=== PATIENT | female | born 1940 | race Caucasian/White ===

== ENCOUNTER 2020-06-26 19:34 | Inpatient (IN) | payer OTHER, MEDICAID, SELFPAY ==
[~2020-06-26] VITALS: Ht 157.5 cm; Wt 49.4 kg
[2020-06-26 19:34] VITALS: BP_SYST 118
[2020-06-26 22:17] LABS: BASOPHILS % (AUTO) 0.2 % (0.0-2.0); EOSINOPHILS % (AUTO) 0.2 % (0.0-4.0); HEMATOCRIT 34.3 % (36-48); LYMPHOCYTES % (AUTO) 15.7 % (20.5-51.5); MEAN CORPUSCULAR HEMOGLOBIN 27 pg (27-31); MEAN CORPUSCULAR HGB CONC 32 % (32-36); MEAN CORPUSCULAR VOLUME 85 fL (79.0-98.0); MONOCYTES # (AUTO) 0.3 K/uL (0.0-1.0); MONOCYTES % (AUTO) 4.1 % (1.7-9.3); NEUTROPHILS % (AUTO) 79.8 % (40.0-70.0); PLATELET COUNT (AUTO) 198 K/uL (130-430); RED BLOOD CELL COUNT(AUTO) 4.04 MIL/uL (4.2-6.2); RED CELL DISTRIBUTION WIDTH 15.5 % (9.0-15.0); WHITE BLOOD COUNT (AUTO) 6.2 K/uL (4.8-10.8)
[2020-06-26 22:28] LABS: ANION GAP 14 (5-15); CALCIUM 8.5 mg/dL (8.4-11.0); CHLORIDE 102 mmol/L (98-107); CREATININE 1.11 mg/dL (0.55-1.30); GLUCOSE 154 mg/dL (70-99); POTASSIUM 3.8 mmol/L (3.5-5.1); SODIUM SERUM 139 mmol/L (136-145); UREA NITROGEN, BLOOD 31 mg/dL (8-21)
[2020-06-26 22:33] LABS: ALANINE AMINOTRANSFERASE 31 U/L (12-78); ALBUMIN 2.9 g/dL (3.4-4.8); ASPARTATE AMINOTRANSFERASE 54 U/L (10-37); TOTAL BILIRUBIN 0.5 mg/dL (0.0-1.0)
[2020-06-27] MEDS: D5/0.45 NS 1,000 ML IV SCH ×2 (03:10→20:45)
[2020-06-27 03:24] LABS: BILIRUBIN,URINE NEGATIVE (NEGATIVE); BLOOD, URINE 3+ (NEGATIVE); CLARITY/URINE CLOUDY (CLEAR); COLOR,URINE YELLOW (YELLOW); GLUCOSE,URINE NEGATIVE (NEGATIVE); KETONES,URINE TRACE (NEGATIVE); LEUKOCYTE ESTERASE ,URINE 3+ (NEGATIVE); NITRITE, URINE NEGATIVE (NEGATIVE); PROTEIN URINE 1+ (NEGATIVE); UROBILINOGEN,URINE 0.2 (0.2-1.0)
[2020-06-27 03:28] LABS: BACTERIA,URINE MANY /HPF (None Seen); RBC,URINE >100 /HPF (0-3); WBC,URINE >100 /HPF (0-3)
[2020-06-27] MEDS: PIPERACILLIN/TAZO 2.25G/DEX-IS 50 ML IV SCH ×4 (06:00→23:41)
[2020-06-27 09:30] VITALS: BP_SYST 114
[2020-06-27 10:00] VITALS: BP_SYST 131
[2020-06-27 12:00] VITALS: BP_SYST 131
[2020-06-27] MEDS ORDERED: MOM PO (15:38)
[2020-06-27] MEDS ORDERED: LIDOINT TP (15:38)
[2020-06-27] MEDS ORDERED: FER300L PO (15:38)
[2020-06-27] MEDS ORDERED: OMEP40CA13 PO (15:38)
[2020-06-27] MEDS ORDERED: POTA20TA83 PO (15:38)
[2020-06-27] MEDS ORDERED: OXYB5TAB18 PO (15:38)
[2020-06-27] MEDS ORDERED: CYAN100010 PO (15:38)
[2020-06-27] MEDS ORDERED: CARV6.2554 PO (15:38)
[2020-06-27] MEDS ORDERED: INSU100V9 SQ (15:38)
[2020-06-27] MEDS ORDERED: ACET-73 PO (15:38)
[2020-06-27] MEDS ORDERED: GLUXR500 PO (15:38)
[2020-06-27] MEDS ORDERED: FURO20TA4 PO (15:38)
[2020-06-27] MEDS ORDERED: ONDA4TAB5 PO (15:38)
[2020-06-27] MEDS ORDERED: VITD400 PO (15:38)
[2020-06-27] MEDS ORDERED: MULT-1089 PO (15:38)
[2020-06-27] MEDS ORDERED: SSNOVOLOG SUBCUT (15:38)
[2020-06-27] MEDS ORDERED: ROSU10TA2 PO (15:38)
[2020-06-27 16:00] VITALS: BP_SYST 139
[2020-06-27] MEDS ORDERED: MILK OF MAGNESIA 30 ML UDC PO SCH (17:00)
[2020-06-27] MEDS ORDERED: ONDANSETRON 4 MG ODT TAB PO SCH (17:00)
[2020-06-27] MEDS ORDERED: ACETAMINOPHEN 500 MG TABLET PO PRN (17:00)
[2020-06-27] MEDS: INSULIN LISPRO SLIDING SCALE 100 UNITS/ML VIAL (humaLOG) SUBCUT PRN (17:30)
[2020-06-27 20:00] VITALS: BP_SYST 114
[2020-06-27] MEDS: ATORVASTATIN 10 MG TABLET PO SCH (21:00)
[2020-06-27] MEDS: OXYBUTYNIN CHLORIDE 5 MG TABLET PO SCH (21:00)
[2020-06-27] MEDS: CARVEDILOL 6.25 MG TABLET (COREG) PO SCH (21:00)
[2020-06-28] VITALS: BP_SYST 128
[2020-06-28] MEDS: INSULIN LISPRO SLIDING SCALE 100 UNITS/ML VIAL (humaLOG) SUBCUT PRN ×3 (00:16→12:16)
[2020-06-28] MEDS: PIPERACILLIN/TAZO 2.25G/DEX-IS 50 ML IV SCH ×3 (05:34→17:42)
[2020-06-28 08:00] VITALS: BP_SYST 114
[2020-06-28 08:02] LABS: BASOPHILS % (AUTO) 0.2 % (0.0-2.0); EOSINOPHILS # (AUTO) 0.1 K/uL (0.0-0.4); EOSINOPHILS % (AUTO) 1.1 % (0.0-4.0); HEMATOCRIT 32.2 % (36-48); HEMOGLOBIN 10.6 g/dL (12.0-16.0); LYMPHOCYTES # (AUTO) 0.9 K/uL (1.0-5.5); LYMPHOCYTES % (AUTO) 15.3 % (20.5-51.5); MEAN CORPUSCULAR HEMOGLOBIN 28 pg (27-31); MEAN CORPUSCULAR HGB CONC 33 % (32-36); MEAN CORPUSCULAR VOLUME 84 fL (79.0-98.0); MONOCYTES # (AUTO) 0.3 K/uL (0.0-1.0); MONOCYTES % (AUTO) 4.3 % (1.7-9.3); NEUTROPHILS # (AUTO) 4.8 K/uL (1.8-7.7); NEUTROPHILS % (AUTO) 79.1 % (40.0-70.0); PLATELET COUNT (AUTO) 197 K/uL (130-430); RED BLOOD CELL COUNT(AUTO) 3.84 MIL/uL (4.2-6.2); WHITE BLOOD COUNT (AUTO) 6.1 K/uL (4.8-10.8)
[2020-06-28 08:04] LABS: PROTHROMBIN TIME 9.9 SECS (9.5-12.5)
[2020-06-28 08:08] LABS: TOTAL IRON BIND. CAPACITY 194 ug/dL (250-450)
[2020-06-28 08:14] LABS: ALANINE AMINOTRANSFERASE 23 U/L (12-78); ALBUMIN 2.6 g/dL (3.4-4.8); ANION GAP 10 (5-15); ASPARTATE AMINOTRANSFERASE 26 U/L (10-37); CALCIUM 8.7 mg/dL (8.4-11.0); CHLORIDE 100 mmol/L (98-107); CREATININE 1.04 mg/dL (0.55-1.30); GLUCOSE 183 mg/dL (70-99); LIPASE 47 U/L (73-393); POTASSIUM 3.9 mmol/L (3.5-5.1); SODIUM SERUM 136 mmol/L (136-145); TOTAL BILIRUBIN 0.5 mg/dL (0.0-1.0); UREA NITROGEN, BLOOD 22 mg/dL (8-21)
[2020-06-28] MEDS: LIDOCAINE TOPICAL OINT 5%, 35 GM TP SCH (09:00)
[2020-06-28] MEDS: POTASSIUM CHLORIDE 20 MEQ TAB.PRT.SR PO SCH (09:37)
[2020-06-28] MEDS: PANTOPRAZOLE SODIUM 40 MG TAB PO SCH (09:37)
[2020-06-28] MEDS: CARVEDILOL 6.25 MG TABLET (COREG) PO SCH ×2 (09:37→21:00)
[2020-06-28] MEDS: MULTIVITAMINS TAB 1 TABLET PO SCH (09:38)
[2020-06-28] MEDS: CYANOCOBALAMIN 1000 mCg TABLET PO SCH (09:38)
[2020-06-28] MEDS: OXYBUTYNIN CHLORIDE 5 MG TABLET PO SCH ×2 (09:38→21:00)
[2020-06-28] MEDS: CHOLECALCIFEROL (VITAMIN D-3) 400 UNIT TABLET PO SCH (09:38)
[2020-06-28] MEDS: FUROSEMIDE 20 MG TABLET PO SCH (09:39)
[2020-06-28] MEDS: FERROUS SULFATE 300 MG/5 ML UDC PO SCH (09:39)
[2020-06-28 11:35] VITALS: BP_SYST 115
[2020-06-28 16:00] VITALS: BP_SYST 114
[2020-06-28] MEDS: D5/0.45 NS 1,000 ML IV SCH (16:45)
[2020-06-28 20:00] VITALS: BP_SYST 110
[2020-06-28] MEDS: ATORVASTATIN 10 MG TABLET PO SCH (21:00)
[2020-06-29] VITALS: BP_SYST 103
[2020-06-29] MEDS: INSULIN LISPRO SLIDING SCALE 100 UNITS/ML VIAL (humaLOG) SUBCUT PRN ×3 (00:28→17:03)
[2020-06-29] MEDS: PIPERACILLIN/TAZO 2.25G/DEX-IS 50 ML IV SCH ×4 (00:28→17:01)
[2020-06-29 08:00] VITALS: BP_SYST 98
[2020-06-29 08:06] LABS: HEPATITIS A AB, IgM Negative (Negative); HEPATITIS B CORE AB, IgM Negative (Negative); HEPATITIS B SURFACE AG Negative (Negative)
[2020-06-29] MEDS: FERROUS SULFATE 300 MG/5 ML UDC PO SCH ×2 (09:00→10:04)
[2020-06-29] MEDS: CARVEDILOL 6.25 MG TABLET (COREG) PO SCH ×2 (09:00→21:00)
[2020-06-29] MEDS: LIDOCAINE TOPICAL OINT 5%, 35 GM TP SCH (09:00)
[2020-06-29 09:17] LABS: ANTI NUCLEAR AB WITH REFLEX Positive (Negative)
[2020-06-29] MEDS ORDERED: MEGESTROL ACETATE 400 MG/10 ML UDC PO ONE (09:30)
[2020-06-29] MEDS: POTASSIUM CHLORIDE 20 MEQ TAB.PRT.SR PO SCH (10:01)
[2020-06-29] MEDS: OXYBUTYNIN CHLORIDE 5 MG TABLET PO SCH ×2 (10:02→21:45)
[2020-06-29] MEDS: CHOLECALCIFEROL (VITAMIN D-3) 400 UNIT TABLET PO SCH (10:02)
[2020-06-29] MEDS: MULTIVITAMINS TAB 1 TABLET PO SCH (10:02)
[2020-06-29] MEDS: FUROSEMIDE 20 MG TABLET PO SCH (10:02)
[2020-06-29] MEDS: CYANOCOBALAMIN 1000 mCg TABLET PO SCH (10:03)
[2020-06-29] MEDS: PANTOPRAZOLE SODIUM 40 MG TAB PO SCH (10:03)
[2020-06-29] MEDS: D5/0.45 NS 1,000 ML IV SCH (12:45)
[2020-06-29 20:00] VITALS: BP_SYST 100
[2020-06-29] MEDS: ATORVASTATIN 10 MG TABLET PO SCH (21:45)
[2020-06-30] VITALS: BP_SYST 97
[2020-06-30] MEDS: INSULIN LISPRO SLIDING SCALE 100 UNITS/ML VIAL (humaLOG) SUBCUT PRN (01:00)
[2020-06-30] MEDS: PIPERACILLIN/TAZO 2.25G/DEX-IS 50 ML IV SCH ×3 (06:00→12:03)
[2020-06-30 07:26] LABS: BASOPHILS % (AUTO) 0.4 % (0.0-2.0); EOSINOPHILS # (AUTO) 0.1 K/uL (0.0-0.4); EOSINOPHILS % (AUTO) 1.3 % (0.0-4.0); HEMOGLOBIN 9.9 g/dL (12.0-16.0); LYMPHOCYTES # (AUTO) 1.9 K/uL (1.0-5.5); MEAN CORPUSCULAR HEMOGLOBIN 28 pg (27-31); MEAN CORPUSCULAR HGB CONC 34 % (32-36); MEAN CORPUSCULAR VOLUME 83 fL (79.0-98.0); MONOCYTES # (AUTO) 0.4 K/uL (0.0-1.0); MONOCYTES % (AUTO) 4.6 % (1.7-9.3); NEUTROPHILS # (AUTO) 7.1 K/uL (1.8-7.7); NEUTROPHILS % (AUTO) 73.7 % (40.0-70.0); PLATELET COUNT (AUTO) 242 K/uL (130-430); RED BLOOD CELL COUNT(AUTO) 3.48 MIL/uL (4.2-6.2); RED CELL DISTRIBUTION WIDTH 15.1 % (9.0-15.0); WHITE BLOOD COUNT (AUTO) 9.7 K/uL (4.8-10.8)
[2020-06-30 08:17] LABS: ANION GAP 12 (5-15); CALCIUM 8.8 mg/dL (8.4-11.0); CHLORIDE 101 mmol/L (98-107); CREATININE 1.27 mg/dL (0.55-1.30); GLUCOSE 76 mg/dL (70-99); POTASSIUM 3.3 mmol/L (3.5-5.1); SODIUM SERUM 138 mmol/L (136-145); UREA NITROGEN, BLOOD 20 mg/dL (8-21)
[2020-06-30] MEDS ORDERED: DEXTROSE 50% JECT 50 ML DISP.SYRIN IVP PRN (10:15)
[2020-06-30 10:25] VITALS: BP_SYST 110
[2020-06-30] MEDS: OXYBUTYNIN CHLORIDE 5 MG TABLET PO SCH ×2 (10:25→21:00)
[2020-06-30] MEDS: CARVEDILOL 6.25 MG TABLET (COREG) PO SCH ×2 (10:25→21:00)
[2020-06-30] MEDS: FUROSEMIDE 20 MG TABLET PO SCH (10:25)
[2020-06-30] MEDS: CYANOCOBALAMIN 1000 mCg TABLET PO SCH (10:25)
[2020-06-30] MEDS: LIDOCAINE TOPICAL OINT 5%, 35 GM TP SCH (10:25)
[2020-06-30] MEDS: MEGESTROL ACETATE 400 MG/10 ML UDC PO SCH (10:25)
[2020-06-30] MEDS: FERROUS SULFATE 300 MG/5 ML UDC PO SCH (10:25)
[2020-06-30] MEDS: POTASSIUM CHLORIDE 20 MEQ TAB.PRT.SR PO SCH (10:25)
[2020-06-30] MEDS: PANTOPRAZOLE SODIUM 40 MG TAB PO SCH (10:25)
[2020-06-30] MEDS: MULTIVITAMINS TAB 1 TABLET PO SCH (10:25)
[2020-06-30] MEDS: CHOLECALCIFEROL (VITAMIN D-3) 400 UNIT TABLET PO SCH (10:25)
[2020-06-30] MEDS: D5/0.45 NS 1,000 ML IV SCH (10:25)
[2020-06-30 11:31] VITALS: BP_SYST 104
[2020-06-30 11:34] LABS: PHOSPHORUS 2.1 mg/dL (2.7-4.5)
[2020-06-30 12:10] LABS: ANTI-SMOOTH MUSCLE AB 4 Units (0-19)
[2020-06-30] MEDS ORDERED: POTASSIUM CHLORIDE 20 MEQ in NS 250 ML IV ONE (14:30)
[2020-06-30 15:20] VITALS: BP_SYST 103
[2020-06-30 20:00] VITALS: BP_SYST 118
[2020-06-30] MEDS ORDERED: *TPN PER PHARMACY XX PRN (21:00)
[2020-06-30] MEDS ORDERED: POTASSIUM CHLORIDE IV SCH ×10 (21:00)
[2020-06-30] MEDS: ATORVASTATIN 10 MG TABLET PO SCH (21:00)
[2020-06-30] MEDS ORDERED: [UNRECOGNIZED DRUG - OTHER] IV SCH ×10 (21:00)
[2020-06-30] MEDS ORDERED: TPN PERIPHERAL IV SCH ×10 (21:00)
[2020-06-30] MEDS ORDERED: SODIUM CHLORIDE IV SCH ×10 (21:00)
[2020-07-01 00:15] VITALS: BP_SYST 109
[2020-07-01] MEDS: PIPERACILLIN/TAZO 2.25G/DEX-IS 50 ML IV SCH ×2 (00:18→05:21)
[2020-07-01] MEDS: D5/0.45 NS 1,000 ML IV SCH (04:45)
[2020-07-01] MEDS: INSULIN REGULAR, HUMAN 100 UNITS/ML, 10 ML VIAL (humuLIN R) SUBCUT PRN ×2 (05:24→17:42)
[2020-07-01] MEDS ORDERED: LEVOFLOXACIN 250 MG/D5W 50 ML IV ONE (06:37)
[2020-07-01] MEDS: LEVOFLOXACIN 250 MG/D5W 50 ML IV SCH (06:40)
[2020-07-01 08:14] LABS: ALANINE AMINOTRANSFERASE 14 U/L (12-78); ALBUMIN 2.1 g/dL (3.4-4.8); ANION GAP 11 (5-15); ASPARTATE AMINOTRANSFERASE 19 U/L (10-37); CALCIUM 8.1 mg/dL (8.4-11.0); CHLORIDE 104 mmol/L (98-107); CREATININE 1.14 mg/dL (0.55-1.30); GLUCOSE 191 mg/dL (70-99); PHOSPHORUS 2.9 mg/dL (2.7-4.5); POTASSIUM 3.5 mmol/L (3.5-5.1); SODIUM SERUM 137 mmol/L (136-145); TOTAL BILIRUBIN 0.3 mg/dL (0.0-1.0); UREA NITROGEN, BLOOD 17 mg/dL (8-21)
[2020-07-01] MEDS: POTASSIUM CHLORIDE 20 MEQ TAB.PRT.SR PO SCH (09:00)
[2020-07-01] MEDS: MULTIVITAMINS TAB 1 TABLET PO SCH (09:00)
[2020-07-01] MEDS: CHOLECALCIFEROL (VITAMIN D-3) 400 UNIT TABLET PO SCH (09:00)
[2020-07-01] MEDS: FERROUS SULFATE 300 MG/5 ML UDC PO SCH (09:00)
[2020-07-01] MEDS: CARVEDILOL 6.25 MG TABLET (COREG) PO SCH ×2 (09:00→23:06)
[2020-07-01] MEDS: PANTOPRAZOLE SODIUM 40 MG TAB PO SCH (09:00)
[2020-07-01] MEDS: LIDOCAINE TOPICAL OINT 5%, 35 GM TP SCH (09:00)
[2020-07-01] MEDS: OXYBUTYNIN CHLORIDE 5 MG TABLET PO SCH ×2 (09:00→23:06)
[2020-07-01] MEDS: FUROSEMIDE 20 MG TABLET PO SCH (09:00)
[2020-07-01] MEDS: CYANOCOBALAMIN 1000 mCg TABLET PO SCH (09:00)
[2020-07-01] MEDS: MEGESTROL ACETATE 400 MG/10 ML UDC PO SCH (09:00)
[2020-07-01 12:10] VITALS: BP_SYST 121
[2020-07-01 16:13] VITALS: BP_SYST 115
[2020-07-01 20:00] VITALS: BP_SYST 106
[2020-07-01] MEDS: ATORVASTATIN 10 MG TABLET PO SCH (23:08)
[2020-07-01] MEDS: [UNRECOGNIZED DRUG - OTHER] IV SCH ×11 (23:10)
[2020-07-01] MEDS: POTASSIUM ACETATE IV SCH ×11 (23:10)
[2020-07-01] MEDS: TPN PERIPHERAL IV SCH ×11 (23:10)
[2020-07-01] MEDS: SODIUM CHLORIDE IV SCH ×11 (23:10)
[2020-07-01] MEDS: FAT EMULSIONS 250 ML IV SCH (23:11)
[2020-07-02] VITALS: BP_SYST 103; BP_SYST 109
[2020-07-02] MEDS: INSULIN REGULAR, HUMAN 100 UNITS/ML, 10 ML VIAL (humuLIN R) SUBCUT PRN ×3 (00:10→12:27)
[2020-07-02] MEDS: D5/0.45 NS 1,000 ML IV SCH ×3 (02:59→21:00)
[2020-07-02] MEDS: LEVOFLOXACIN 250 MG/D5W 50 ML IV SCH (06:33)
[2020-07-02 07:57] LABS: ALANINE AMINOTRANSFERASE 11 U/L (12-78); ALBUMIN 2.1 g/dL (3.4-4.8); ANION GAP 5 (5-15); ASPARTATE AMINOTRANSFERASE 15 U/L (10-37); CALCIUM 7.9 mg/dL (8.4-11.0); CHLORIDE 103 mmol/L (98-107); CREATININE 0.91 mg/dL (0.55-1.30); GLUCOSE 231 mg/dL (70-99); PHOSPHORUS 3.1 mg/dL (2.7-4.5); POTASSIUM 3.8 mmol/L (3.5-5.1); SODIUM SERUM 131 mmol/L (136-145); TOTAL BILIRUBIN 0.3 mg/dL (0.0-1.0); UREA NITROGEN, BLOOD 17 mg/dL (8-21)
[2020-07-02 08:00] VITALS: BP_SYST 115
[2020-07-02] MEDS: OXYBUTYNIN CHLORIDE 5 MG TABLET PO SCH ×2 (09:00→21:00)
[2020-07-02] MEDS: CYANOCOBALAMIN 1000 mCg TABLET PO SCH (09:00)
[2020-07-02] MEDS: CHOLECALCIFEROL (VITAMIN D-3) 400 UNIT TABLET PO SCH (09:00)
[2020-07-02] MEDS: FERROUS SULFATE 300 MG/5 ML UDC PO SCH (09:00)
[2020-07-02] MEDS: POTASSIUM CHLORIDE 20 MEQ TAB.PRT.SR PO SCH (09:00)
[2020-07-02] MEDS: MEGESTROL ACETATE 400 MG/10 ML UDC PO SCH (09:00)
[2020-07-02] MEDS: PANTOPRAZOLE SODIUM 40 MG TAB PO SCH (09:00)
[2020-07-02] MEDS: CARVEDILOL 6.25 MG TABLET (COREG) PO SCH ×2 (09:00→21:00)
[2020-07-02] MEDS: LIDOCAINE TOPICAL OINT 5%, 35 GM TP SCH (09:00)
[2020-07-02] MEDS: MULTIVITAMINS TAB 1 TABLET PO SCH (09:00)
[2020-07-02] MEDS: FUROSEMIDE 20 MG TABLET PO SCH (09:00)
[2020-07-02 16:00] VITALS: BP_SYST 113
[2020-07-02 19:55] VITALS: BP_SYST 103
[2020-07-02] MEDS: [UNRECOGNIZED DRUG - OTHER] IV SCH ×11 (20:38)
[2020-07-02] MEDS: SODIUM CHLORIDE IV SCH ×11 (20:38)
[2020-07-02] MEDS: TPN PERIPHERAL IV SCH ×11 (20:38)
[2020-07-02] MEDS: POTASSIUM ACETATE IV SCH ×11 (20:38)
[2020-07-02] MEDS ORDERED: SODIUM CHLORIDE IV SCH ×12 (21:00)
[2020-07-02] MEDS ORDERED: POTASSIUM ACETATE IV SCH ×12 (21:00)
[2020-07-02] MEDS ORDERED: [UNRECOGNIZED DRUG - OTHER] IV SCH ×12 (21:00)
[2020-07-02] MEDS ORDERED: TPN PERIPHERAL IV SCH ×12 (21:00)
[2020-07-02] MEDS: FAT EMULSIONS 250 ML IV SCH (21:00)
[2020-07-02] MEDS: ATORVASTATIN 10 MG TABLET PO SCH (21:00)
[2020-07-03] VITALS: BP_SYST 103
[2020-07-03] MEDS: INSULIN REGULAR, HUMAN 100 UNITS/ML, 10 ML VIAL (humuLIN R) SUBCUT PRN ×3 (00:50→12:54)
[2020-07-03] MEDS: LEVOFLOXACIN 250 MG/D5W 50 ML IV SCH (05:58)
[2020-07-03 07:55] VITALS: BP_SYST 132
[2020-07-03 08:54] LABS: ALANINE AMINOTRANSFERASE 13 U/L (12-78); ALBUMIN 2.1 g/dL (3.4-4.8); ANION GAP 10 (5-15); ASPARTATE AMINOTRANSFERASE 17 U/L (10-37); CALCIUM 8.5 mg/dL (8.4-11.0); CHLORIDE 105 mmol/L (98-107); GLUCOSE 195 mg/dL (70-99); PHOSPHORUS 3.5 mg/dL (2.7-4.5); SODIUM SERUM 138 mmol/L (136-145); TOTAL BILIRUBIN 0.3 mg/dL (0.0-1.0); UREA NITROGEN, BLOOD 20 mg/dL (8-21)
[2020-07-03] MEDS: LIDOCAINE TOPICAL OINT 5%, 35 GM TP SCH (09:00)
[2020-07-03 09:25] LABS: CREATININE 0.93 mg/dL (0.55-1.30)
[2020-07-03] MEDS: OXYBUTYNIN CHLORIDE 5 MG TABLET PO SCH ×2 (10:26→22:13)
[2020-07-03] MEDS: FUROSEMIDE 20 MG TABLET PO SCH (10:27)
[2020-07-03] MEDS: PANTOPRAZOLE SODIUM 40 MG TAB PO SCH (10:27)
[2020-07-03] MEDS: POTASSIUM CHLORIDE 20 MEQ TAB.PRT.SR PO SCH (10:27)
[2020-07-03] MEDS: MEGESTROL ACETATE 400 MG/10 ML UDC PO SCH (10:27)
[2020-07-03] MEDS: MULTIVITAMINS TAB 1 TABLET PO SCH (10:27)
[2020-07-03] MEDS: CYANOCOBALAMIN 1000 mCg TABLET PO SCH (10:28)
[2020-07-03] MEDS: FERROUS SULFATE 300 MG/5 ML UDC PO SCH (10:28)
[2020-07-03] MEDS: CHOLECALCIFEROL (VITAMIN D-3) 400 UNIT TABLET PO SCH (10:28)
[2020-07-03] MEDS: CARVEDILOL 6.25 MG TABLET (COREG) PO SCH ×2 (10:28→22:13)
[2020-07-03 12:00] VITALS: BP_SYST 122
[2020-07-03 16:00] VITALS: BP_SYST 121
[2020-07-03] MEDS ORDERED: TPN PERIPHERAL IV SCH ×11 (21:00)
[2020-07-03] MEDS ORDERED: [UNRECOGNIZED DRUG - OTHER] IV SCH ×11 (21:00)
[2020-07-03] MEDS ORDERED: SODIUM CHLORIDE IV SCH ×11 (21:00)
[2020-07-03] MEDS ORDERED: POTASSIUM ACETATE IV SCH ×11 (21:00)
[2020-07-03 21:30] VITALS: BP_SYST 129
[2020-07-03] MEDS: D5/0.45 NS 1,000 ML IV SCH (22:11)
[2020-07-03] MEDS: ATORVASTATIN 10 MG TABLET PO SCH (22:14)
[2020-07-03] MEDS: FAT EMULSIONS 250 ML IV SCH (22:21)
[2020-07-04] VITALS: BP_SYST 108
[2020-07-04] MEDS: INSULIN REGULAR, HUMAN 100 UNITS/ML, 10 ML VIAL (humuLIN R) SUBCUT PRN ×3 (00:24→18:16)
[2020-07-04] MEDS: LEVOFLOXACIN 250 MG/D5W 50 ML IV SCH (05:06)
[2020-07-04 07:58] VITALS: BP_SYST 94
[2020-07-04 08:25] LABS: ALANINE AMINOTRANSFERASE 26 U/L (12-78); ALBUMIN 2.2 g/dL (3.4-4.8); ANION GAP 12 (5-15); CALCIUM 8.4 mg/dL (8.4-11.0); CHLORIDE 103 mmol/L (98-107); GLUCOSE 150 mg/dL (70-99); PHOSPHORUS 3.4 mg/dL (2.7-4.5); POTASSIUM 4.1 mmol/L (3.5-5.1); SODIUM SERUM 137 mmol/L (136-145); TOTAL BILIRUBIN 0.8 mg/dL (0.0-1.0); UREA NITROGEN, BLOOD 28 mg/dL (8-21)
[2020-07-04 08:37] LABS: ASPARTATE AMINOTRANSFERASE 34 U/L (10-37)
[2020-07-04] MEDS: POTASSIUM CHLORIDE 20 MEQ TAB.PRT.SR PO SCH (09:00)
[2020-07-04] MEDS: FUROSEMIDE 20 MG TABLET PO SCH (09:00)
[2020-07-04] MEDS: CHOLECALCIFEROL (VITAMIN D-3) 400 UNIT TABLET PO SCH (09:00)
[2020-07-04] MEDS: CYANOCOBALAMIN 1000 mCg TABLET PO SCH (09:00)
[2020-07-04] MEDS: FERROUS SULFATE 300 MG/5 ML UDC PO SCH (09:00)
[2020-07-04] MEDS: CARVEDILOL 6.25 MG TABLET (COREG) PO SCH ×2 (09:00→21:00)
[2020-07-04] MEDS: MULTIVITAMINS TAB 1 TABLET PO SCH (09:00)
[2020-07-04] MEDS: LIDOCAINE TOPICAL OINT 5%, 35 GM TP SCH (09:00)
[2020-07-04] MEDS: OXYBUTYNIN CHLORIDE 5 MG TABLET PO SCH ×2 (09:00→21:03)
[2020-07-04] MEDS: MEGESTROL ACETATE 400 MG/10 ML UDC PO SCH (09:00)
[2020-07-04] MEDS: PANTOPRAZOLE SODIUM 40 MG TAB PO SCH (09:00)
[2020-07-04 10:09] LABS: TRIGLYCERIDES 89 mg/dL (30-150)
[2020-07-04 12:00] VITALS: BP_SYST 110
[2020-07-04 16:00] VITALS: BP_SYST 112
[2020-07-04] MEDS: FAT EMULSIONS 250 ML IV SCH (20:23)
[2020-07-04 20:30] VITALS: BP_SYST 128
[2020-07-04] MEDS ORDERED: SODIUM CHLORIDE IV SCH ×10 (21:00)
[2020-07-04] MEDS ORDERED: [UNRECOGNIZED DRUG - OTHER] IV SCH ×10 (21:00)
[2020-07-04] MEDS ORDERED: POTASSIUM ACETATE IV SCH ×10 (21:00)
[2020-07-04] MEDS ORDERED: TPN PERIPHERAL IV SCH ×10 (21:00)
[2020-07-04] MEDS: D5/0.45 NS 1,000 ML IV SCH (21:00)
[2020-07-04] MEDS: ATORVASTATIN 10 MG TABLET PO SCH (21:04)
[2020-07-05] VITALS: BP_SYST 116
[2020-07-05] MEDS: INSULIN REGULAR, HUMAN 100 UNITS/ML, 10 ML VIAL (humuLIN R) SUBCUT PRN ×2 (00:18→13:26)
[2020-07-05 07:56] LABS: ALANINE AMINOTRANSFERASE 24 U/L (12-78); ANION GAP 7 (5-15); ASPARTATE AMINOTRANSFERASE 27 U/L (10-37); CALCIUM 8.3 mg/dL (8.4-11.0); CHLORIDE 103 mmol/L (98-107); GLUCOSE 159 mg/dL (70-99); PHOSPHORUS 3.2 mg/dL (2.7-4.5); POTASSIUM 4.2 mmol/L (3.5-5.1); SODIUM SERUM 137 mmol/L (136-145); TOTAL BILIRUBIN 0.2 mg/dL (0.0-1.0); UREA NITROGEN, BLOOD 35 mg/dL (8-21)
[2020-07-05] MEDS: CYANOCOBALAMIN 1000 mCg TABLET PO SCH (09:00)
[2020-07-05] MEDS: CARVEDILOL 6.25 MG TABLET (COREG) PO SCH ×2 (09:00→22:10)
[2020-07-05] MEDS: CHOLECALCIFEROL (VITAMIN D-3) 400 UNIT TABLET PO SCH (09:00)
[2020-07-05] MEDS: OXYBUTYNIN CHLORIDE 5 MG TABLET PO SCH ×2 (09:00→22:10)
[2020-07-05] MEDS: FUROSEMIDE 20 MG TABLET PO SCH (09:00)
[2020-07-05] MEDS: MEGESTROL ACETATE 400 MG/10 ML UDC PO SCH (09:00)
[2020-07-05] MEDS: POTASSIUM CHLORIDE 20 MEQ TAB.PRT.SR PO SCH (09:00)
[2020-07-05] MEDS: MULTIVITAMINS TAB 1 TABLET PO SCH (09:00)
[2020-07-05] MEDS: PANTOPRAZOLE SODIUM 40 MG TAB PO SCH (09:00)
[2020-07-05] MEDS: FERROUS SULFATE 300 MG/5 ML UDC PO SCH (09:00)
[2020-07-05 09:31] LABS: CREATININE 1.24 mg/dL (0.55-1.30)
[2020-07-05] MEDS: LIDOCAINE TOPICAL OINT 5%, 35 GM TP SCH (09:45)
[2020-07-05 12:15] VITALS: BP_SYST 101
[2020-07-05 16:14] VITALS: BP_SYST 101
[2020-07-05 20:00] VITALS: BP_SYST 127
[2020-07-05] MEDS ORDERED: SODIUM ACETATE IV SCH ×12 (21:00)
[2020-07-05] MEDS: FAT EMULSIONS 250 ML IV SCH (21:00)
[2020-07-05] MEDS: D5/0.45 NS 1,000 ML IV SCH (21:00)
[2020-07-05] MEDS ORDERED: TPN PERIPHERAL IV SCH ×12 (21:00)
[2020-07-05] MEDS ORDERED: [UNRECOGNIZED DRUG - OTHER] IV SCH ×12 (21:00)
[2020-07-05] MEDS ORDERED: SODIUM CHLORIDE IV SCH ×12 (21:00)
[2020-07-05] MEDS: ATORVASTATIN 10 MG TABLET PO SCH (22:10)
[2020-07-06] VITALS: BP_SYST 112
[2020-07-06] MEDS: INSULIN REGULAR, HUMAN 100 UNITS/ML, 10 ML VIAL (humuLIN R) SUBCUT PRN ×4 (00:30→17:23)
[2020-07-06 07:41] LABS: BASOPHILS % (AUTO) 0.3 % (0.0-2.0); EOSINOPHILS # (AUTO) 0.1 K/uL (0.0-0.4); EOSINOPHILS % (AUTO) 1.2 % (0.0-4.0); HEMATOCRIT 25.2 % (36-48); HEMOGLOBIN 8.5 g/dL (12.0-16.0); LYMPHOCYTES # (AUTO) 1.9 K/uL (1.0-5.5); LYMPHOCYTES % (AUTO) 26.8 % (20.5-51.5); MEAN CORPUSCULAR HEMOGLOBIN 28 pg (27-31); MEAN CORPUSCULAR HGB CONC 34 % (32-36); MEAN CORPUSCULAR VOLUME 83 fL (79.0-98.0); MONOCYTES # (AUTO) 0.6 K/uL (0.0-1.0); MONOCYTES % (AUTO) 7.8 % (1.7-9.3); NEUTROPHILS # (AUTO) 4.6 K/uL (1.8-7.7); NEUTROPHILS % (AUTO) 63.9 % (40.0-70.0); PLATELET COUNT (AUTO) 259 K/uL (130-430); RED BLOOD CELL COUNT(AUTO) 3.04 MIL/uL (4.2-6.2); RED CELL DISTRIBUTION WIDTH 14.6 % (9.0-15.0); WHITE BLOOD COUNT (AUTO) 7.2 K/uL (4.8-10.8)
[2020-07-06 07:52] LABS: ALANINE AMINOTRANSFERASE 19 U/L (12-78); ALBUMIN 2.1 g/dL (3.4-4.8); ANION GAP 8 (5-15); ASPARTATE AMINOTRANSFERASE 23 U/L (10-37); CALCIUM 8.4 mg/dL (8.4-11.0); CHLORIDE 102 mmol/L (98-107); GLUCOSE 193 mg/dL (70-99); PHOSPHORUS 2.8 mg/dL (2.7-4.5); POTASSIUM 4.3 mmol/L (3.5-5.1); SODIUM SERUM 134 mmol/L (136-145); TOTAL BILIRUBIN 0.3 mg/dL (0.0-1.0); UREA NITROGEN, BLOOD 31 mg/dL (8-21)
[2020-07-06] MEDS: CYANOCOBALAMIN 1000 mCg TABLET PO SCH (09:00)
[2020-07-06] MEDS: FERROUS SULFATE 300 MG/5 ML UDC PO SCH (09:00)
[2020-07-06] MEDS: OXYBUTYNIN CHLORIDE 5 MG TABLET PO SCH ×2 (09:00→23:42)
[2020-07-06] MEDS: CARVEDILOL 6.25 MG TABLET (COREG) PO SCH ×2 (09:00→23:52)
[2020-07-06] MEDS: LIDOCAINE TOPICAL OINT 5%, 35 GM TP SCH (09:00)
[2020-07-06] MEDS: FUROSEMIDE 20 MG TABLET PO SCH (09:00)
[2020-07-06] MEDS: MEGESTROL ACETATE 400 MG/10 ML UDC PO SCH (09:00)
[2020-07-06] MEDS: MULTIVITAMINS TAB 1 TABLET PO SCH (09:00)
[2020-07-06] MEDS: CHOLECALCIFEROL (VITAMIN D-3) 400 UNIT TABLET PO SCH (09:00)
[2020-07-06] MEDS: PANTOPRAZOLE SODIUM 40 MG TAB PO SCH (09:00)
[2020-07-06] MEDS: POTASSIUM CHLORIDE 20 MEQ TAB.PRT.SR PO SCH (09:00)
[2020-07-06 10:00] VITALS: BP_SYST 97
[2020-07-06 16:25] VITALS: BP_SYST 107
[2020-07-06 20:00] VITALS: BP_SYST 121
[2020-07-06] MEDS: D5/0.45 NS 1,000 ML IV SCH (20:00)
[2020-07-06] MEDS: FAT EMULSIONS 250 ML IV SCH (21:00)
[2020-07-06] MEDS ORDERED: [UNRECOGNIZED DRUG - OTHER] IV SCH ×11 (21:00)
[2020-07-06] MEDS ORDERED: SODIUM CHLORIDE IV SCH ×11 (21:00)
[2020-07-06] MEDS ORDERED: TPN PERIPHERAL IV SCH ×11 (21:00)
[2020-07-06] MEDS ORDERED: SODIUM ACETATE IV SCH ×11 (21:00)
[2020-07-06] MEDS: ATORVASTATIN 10 MG TABLET PO SCH (23:43)
[2020-07-07] VITALS (7 sets, daily range): BP systolic 102–132
[2020-07-07] MEDS: INSULIN REGULAR, HUMAN 100 UNITS/ML, 10 ML VIAL (humuLIN R) SUBCUT PRN ×2 (06:57)
[2020-07-07 08:16] LABS: ALANINE AMINOTRANSFERASE 22 U/L (12-78); ALBUMIN 2.3 g/dL (3.4-4.8); ANION GAP 7 (5-15); ASPARTATE AMINOTRANSFERASE 26 U/L (10-37); CALCIUM 8.6 mg/dL (8.4-11.0); CHLORIDE 104 mmol/L (98-107); CREATININE 0.94 mg/dL (0.55-1.30); GLUCOSE 161 mg/dL (70-99); PHOSPHORUS 2.7 mg/dL (2.7-4.5); POTASSIUM 4.3 mmol/L (3.5-5.1); SODIUM SERUM 137 mmol/L (136-145); TOTAL BILIRUBIN 0.3 mg/dL (0.0-1.0); UREA NITROGEN, BLOOD 32 mg/dL (8-21)
[2020-07-07] MEDS: LIDOCAINE TOPICAL OINT 5%, 35 GM TP SCH (09:00)
[2020-07-07] MEDS: FERROUS SULFATE 300 MG/5 ML UDC PO SCH (10:50)
[2020-07-07] MEDS: MEGESTROL ACETATE 400 MG/10 ML UDC PO SCH (10:51)
[2020-07-07] MEDS: CHOLECALCIFEROL (VITAMIN D-3) 400 UNIT TABLET PO SCH (10:52)
[2020-07-07] MEDS: PANTOPRAZOLE SODIUM 40 MG TAB PO SCH (10:53)
[2020-07-07] MEDS: MULTIVITAMINS TAB 1 TABLET PO SCH (10:53)
[2020-07-07] MEDS: POTASSIUM CHLORIDE 20 MEQ TAB.PRT.SR PO SCH (10:54)
[2020-07-07] MEDS: CYANOCOBALAMIN 1000 mCg TABLET PO SCH (10:54)
[2020-07-07] MEDS: OXYBUTYNIN CHLORIDE 5 MG TABLET PO SCH ×2 (10:55→21:34)
[2020-07-07] MEDS: CARVEDILOL 6.25 MG TABLET (COREG) PO SCH ×2 (11:48→21:34)
[2020-07-07] MEDS: FUROSEMIDE 20 MG TABLET PO SCH (11:49)
[2020-07-07] MEDS ORDERED: D5/0.45 NS 1,000 ML IV SCH (19:15)
[2020-07-07] MEDS ORDERED: [UNRECOGNIZED DRUG - OTHER] IV SCH ×12 (21:00)
[2020-07-07] MEDS ORDERED: TPN PERIPHERAL IV SCH ×12 (21:00)
[2020-07-07] MEDS ORDERED: SODIUM ACETATE IV SCH ×12 (21:00)
[2020-07-07] MEDS ORDERED: SODIUM CHLORIDE IV SCH ×12 (21:00)
[2020-07-07] MEDS: ATORVASTATIN 10 MG TABLET PO SCH (21:34)
[2020-07-08] MEDS: INSULIN REGULAR, HUMAN 100 UNITS/ML, 10 ML VIAL (humuLIN R) SUBCUT PRN ×2 (00:20→06:04)
[2020-07-08 07:48] LABS: BASOPHILS % (AUTO) 0.3 % (0.0-2.0); EOSINOPHILS # (AUTO) 0.1 K/uL (0.0-0.4); EOSINOPHILS % (AUTO) 0.7 % (0.0-4.0); HEMATOCRIT 27.8 % (36-48); HEMOGLOBIN 9.3 g/dL (12.0-16.0); LYMPHOCYTES # (AUTO) 2.3 K/uL (1.0-5.5); LYMPHOCYTES % (AUTO) 19.6 % (20.5-51.5); MEAN CORPUSCULAR HEMOGLOBIN 28 pg (27-31); MEAN CORPUSCULAR HGB CONC 33 % (32-36); MEAN CORPUSCULAR VOLUME 84 fL (79.0-98.0); MONOCYTES # (AUTO) 0.6 K/uL (0.0-1.0); MONOCYTES % (AUTO) 5.2 % (1.7-9.3); NEUTROPHILS # (AUTO) 8.7 K/uL (1.8-7.7); NEUTROPHILS % (AUTO) 74.2 % (40.0-70.0); PLATELET COUNT (AUTO) 341 K/uL (130-430); RED BLOOD CELL COUNT(AUTO) 3.33 MIL/uL (4.2-6.2); RED CELL DISTRIBUTION WIDTH 14.9 % (9.0-15.0); WHITE BLOOD COUNT (AUTO) 11.7 K/uL (4.8-10.8)
[2020-07-08 08:08] LABS: ALANINE AMINOTRANSFERASE 21 U/L (12-78); ALBUMIN 2.5 g/dL (3.4-4.8); ANION GAP 11 (5-15); ASPARTATE AMINOTRANSFERASE 20 U/L (10-37); CALCIUM 8.5 mg/dL (8.4-11.0); CHLORIDE 103 mmol/L (98-107); GLUCOSE 170 mg/dL (70-99); POTASSIUM 3.9 mmol/L (3.5-5.1); SODIUM SERUM 138 mmol/L (136-145); TOTAL BILIRUBIN 0.3 mg/dL (0.0-1.0); UREA NITROGEN, BLOOD 33 mg/dL (8-21)
[2020-07-08] MEDS: LIDOCAINE TOPICAL OINT 5%, 35 GM TP SCH (09:00)
[2020-07-08] MEDS: CHOLECALCIFEROL (VITAMIN D-3) 400 UNIT TABLET PO SCH (09:00)
[2020-07-08] MEDS: CARVEDILOL 6.25 MG TABLET (COREG) PO SCH (09:00)
[2020-07-08] MEDS: FERROUS SULFATE 300 MG/5 ML UDC PO SCH (10:42)
[2020-07-08] MEDS: MEGESTROL ACETATE 400 MG/10 ML UDC PO SCH (10:42)
[2020-07-08] MEDS: PANTOPRAZOLE SODIUM 40 MG TAB PO SCH (10:43)
[2020-07-08] MEDS: MULTIVITAMINS TAB 1 TABLET PO SCH (10:43)
[2020-07-08] MEDS: OXYBUTYNIN CHLORIDE 5 MG TABLET PO SCH (10:43)
[2020-07-08] MEDS: CYANOCOBALAMIN 1000 mCg TABLET PO SCH (10:43)
[2020-07-08] MEDS: POTASSIUM CHLORIDE 20 MEQ TAB.PRT.SR PO SCH (10:44)
[2020-07-08] MEDS: FUROSEMIDE 20 MG TABLET PO SCH (10:45)
== END 2020-07-08 13:30 | disposition home health service (06) | DRG 178 ==
LOC: SED 19:34 → STU 06-27 00:33
PROVIDERS: ADMIT Internal Medicine; ATTEND Internal Medicine
DX: U07.1 COVID-19 (principal); N39.0 Urinary tract infection, site not specified; E44.0 Moderate protein-calorie malnutrition; E11.9 Type 2 diabetes mellitus without complications; R62.7 Adult failure to thrive; E86.0 Dehydration; Z88.5 Allergy status to narcotic agent; Z88.1 Allergy status to other antibiotic agents
CPT/HCPCS: 36415; 71045; 76770; 80048; 80053; 80074; 81000-TC; 82962; 83516; 83540-TC; 83550-TC; 83690-TC; 83735-TC; 84100-TC; 84478-TC; 85025; 85610-TC; 85730-TC; 86038; 87040-TC; 87086; 92610-GN; 93005; 97110-GP; 97112-GP; 97116-GP; 97530-GP; 99285; J0610; J1815; J1956; J2543; J3475; J3480; J7050; J7131